=== PATIENT | female | born 1960 | race Caucasian/White ===

== ENCOUNTER 2016-06-03 06:29 | Day surgery (SDC) | payer OTHER ==
[~2016-06-03] VITALS: Ht 162.6 cm; Wt 95.5 kg
[~2016-06-03 06:29] MED LIST: ASCO250T5 PO; CHOL200041 PO; CITA20TA9 PO; LEVO50 PO; METF500T4 PO; OMEP20 PO; OXYB5 PO; PIOG30TA2 PO; QUET300XR PO; RANI150T7 PO; SIMV-261 PO
[2016-06-03] MEDS ORDERED: SODIUM CHLORIDE 0.9% 1,000 ML IV ONE ×2 (06:33→07:00)
[2016-06-03] MEDS ORDERED: XALA2.5OS OU (06:56)
[2016-06-03] MEDS ORDERED: NAPR-58 PO (06:56)
[2016-06-03] MEDS ORDERED: CORTSOL OT (06:56)
[2016-06-03] MEDS ORDERED: LORA0.5T2 PO (06:56)
[2016-06-03] MEDS ORDERED: FLUT16H NASAL (06:56)
[2016-06-03] MEDS ORDERED: MOME13HF IH (06:56)
[2016-06-03] MEDS ORDERED: AMIT25TA9 PO (06:56)
[2016-06-03] MEDS ORDERED: MONT10TA21 PO (06:56)
[2016-06-03] MEDS ORDERED: ALBU8.5H IH (06:56)
[2016-06-03] MEDS ORDERED: DAPA1TAB3 PO (06:56)
[2016-06-03 07:17] LABS: GLUCOSE,POINT OF CARE 143 MG/DL (70-110)
[2016-06-03] MEDS ORDERED: FentaNYL CITRATE-PF 100 MCG/2 ML VIAL ONE (07:45)
[2016-06-03] MEDS ORDERED: MIDAZOLAM HCL 2 MG/2 ML VIAL ONE (07:45)
[2016-06-03] MEDS ORDERED: MethylPREDNISolone SOD SUCC 125 MG/2 ML VIAL IVP ONE (08:45)
[2016-06-03] MEDS ORDERED: MethylPREDNISolone SOD SUCC 125 MG/2 ML VIAL ONE (09:03)
[2016-06-03] MEDS ORDERED: BENZOCAINE 20% 50 MCG/SPRAY 57 GM TP ONE (12:00)
[2016-06-03] MEDS ORDERED: LIDOCAINE HCL 2% 30 ML JELLY TP ONE (12:00)
[2016-06-03] MEDS ORDERED: LIDOCAINE HCL 4% 50 ML SOLUTION TP ONE (12:00)
[2016-06-03] MEDS ORDERED: ALBUTEROL SULFATE 2.5 MG/0.5 ML NEB SOLUTION NEB ONE (12:00)
[2016-06-03] MEDS ORDERED: OXYGEN THERAPY IH SCH (20:00)
== END 2016-06-03 10:10 | disposition home or self-care (01) ==
LOC: SURGERY 06:29
PROVIDERS: ATTEND Internal Medicine Critical Care Medicine
DX: J38.4 Edema of larynx (principal); B37.0 Candidal stomatitis; E11.39 Type 2 diabetes mellitus with other diabetic ophthalmic complication; H40.9 Unspecified glaucoma; D64.9 Anemia, unspecified; E78.00 Pure hypercholesterolemia, unspecified; Z87.891 Personal history of nicotine dependence; Z88.8 Allergy status to other drugs, medicaments and biological substances; Z98.890 Other specified postprocedural states
CPT/HCPCS: 31623; 31624; 71010; 82962; 87015 ×2; 87070; 87077; 87101; 87205; 87220; 88108; 88312; J2250; J2930; J3010; J7030

== ENCOUNTER 2016-08-11 20:28 | Emergency (ER) | payer OTHER ==
[~2016-08-11] VITALS: Ht 162.6 cm; Wt 90.5 kg
[~2016-08-11 20:28] MED LIST changes: +ALBU8.5H IH; +AMIT25TA9 PO; +CORTSOL OT; +DAPA1TAB3 PO; +FLUT16H NASAL; +LORA0.5T2 PO; +MOME13HF IH; +MONT10TA21 PO; +NAPR-58 PO; +XALA2.5OS OU
[2016-08-11 21:02] LABS: GLUCOSE COMMENT 1 Repeated; GLUCOSE,POINT OF CARE 138 MG/DL (70-110)
[2016-08-11 21:06] LABS: APPEARANCE,URINE CLOUDY (CLEAR); GLUCOSE, URINE (UA) >=1000 mg/dL (NEGATIVE); KETONES,URINE NEGATIVE (NEGATIVE); LEUKOCYTE ESTERASE ,URINE SMALL (NEGATIVE); OCCULT BLOOD,URINE MODERATE (NEGATIVE); PROTEIN,URINE NEGATIVE (NEGATIVE)
[2016-08-11 21:08] LABS: SQUAMOUS EPITHELIAL CELL,UR Many /LPF (None Seen)
[2016-08-11 22:22] VITALS: BP 125/71
== END 2016-08-11 23:01 | disposition home or self-care (01) ==
LOC: EMS 20:30
DX: L29.2 Pruritus vulvae (principal); E11.9 Type 2 diabetes mellitus without complications; E03.9 Hypothyroidism, unspecified; K21.9 Gastro-esophageal reflux disease without esophagitis; Z91.041 Radiographic dye allergy status
CPT/HCPCS: 82962; 87086; 99284

== ENCOUNTER 2017-04-19 06:40 | Day surgery (SDC) | payer OTHER ==
[~2017-04-19] VITALS: Ht 165.1 cm; Wt 99.5 kg
[~2017-04-19 06:40] MED LIST changes: -ALBU8.5H IH; +ALBU8.5H8 IH; +PIOG30TA10 PO; -PIOG30TA2 PO; +SODIUM CHLORIDE 0.9% 1,000 ML IV ONE
[2017-04-19] MEDS ORDERED: LIDOCAINE HCL 2% 5 ML JELLY TP ONE (06:41)
[2017-04-19] MEDS ORDERED: LIDOCAINE HCL 4% 50 ML SOLUTION TP ONE (06:41)
[2017-04-19] MEDS ORDERED: ALBUTEROL SULFATE 2.5 MG/0.5 ML NEB SOLUTION NEB ONE (06:41)
[2017-04-19] MEDS ORDERED: BENZOCAINE 20% 50 MCG/SPRAY 57 GM TP ONE (06:41)
[2017-04-19] MEDS ORDERED: SODIUM CHLORIDE 0.9% 1,000 ML IV ONE (07:02)
[2017-04-19] MEDS ORDERED: FentaNYL CITRATE-PF 100 MCG/2 ML VIAL ONE (07:33)
[2017-04-19] MEDS ORDERED: MIDAZOLAM HCL 2 MG/2 ML VIAL ONE (07:33)
[2017-04-19] MEDS ORDERED: MethylPREDNISolone SOD SUCC 125 MG/2 ML VIAL ONE (08:54)
[2017-04-19] MEDS ORDERED: MethylPREDNISolone SOD SUCC 125 MG/2 ML VIAL IVP ONE (09:00)
[2017-04-19] MEDS ORDERED: OXYGEN THERAPY IH SCH (20:00)
== END 2017-04-19 10:00 | disposition home or self-care (01) ==
LOC: SURGERY 06:40
PROVIDERS: ATTEND Internal Medicine Critical Care Medicine
DX: J38.4 Edema of larynx (principal); B37.0 Candidal stomatitis; J44.9 Chronic obstructive pulmonary disease, unspecified; E78.00 Pure hypercholesterolemia, unspecified; K21.9 Gastro-esophageal reflux disease without esophagitis; Z90.710 Acquired absence of both cervix and uterus; Z98.890 Other specified postprocedural states; Z79.84 Long term (current) use of oral hypoglycemic drugs; Z79.899 Other long term (current) drug therapy; Z91.041 Radiographic dye allergy status
CPT/HCPCS: 31623; 31624; 71045; 87015; 87070; 87205; 87220; 88108; 88312; J2250; J2930; J3010; J7030

== ENCOUNTER 2017-09-16 18:49 | Emergency (ER) | payer OTHER ==
[~2017-09-16] VITALS: Ht 160 cm; Wt 107.7 kg
[~2017-09-16 18:49] MED LIST changes: +CITA-106 PO; -CITA20TA9 PO; -METF500T4 PO; +METF500T6 PO; -SODIUM CHLORIDE 0.9% 1,000 ML IV ONE
[2017-09-16 19:14] LABS: GLUCOSE,POINT OF CARE 116 MG/DL (70-110)
[2017-09-16] MEDS ORDERED: IBUPROFEN 600 MG TABLET PO ONE (21:00)
[2017-09-16 22:18] VITALS: BP 143/88
== END 2017-09-16 22:31 | disposition home or self-care (01) ==
LOC: EMS 18:52
DX: S83.91XA Sprain of unspecified site of right knee, initial encounter (principal); E11.9 Type 2 diabetes mellitus without complications; E03.9 Hypothyroidism, unspecified; K21.9 Gastro-esophageal reflux disease without esophagitis; Z91.041 Radiographic dye allergy status; V49.60XA Unspecified car occupant injured in collision with unspecified motor vehicles in traffic accident, initial encounter; Y93.89 Activity, other specified; Y92.89 Other specified places as the place of occurrence of the external cause; Y99.8 Other external cause status
CPT/HCPCS: 29530; 99284

== ENCOUNTER 2017-12-14 17:54 | Emergency (ER) | payer OTHER ==
[~2017-12-14] VITALS: Ht 152.4 cm; Wt 59.1 kg
[~2017-12-14 17:54] MED LIST changes: +METF-960 PO; -METF500T6 PO
[2017-12-14 18:29] LABS: GLUCOSE,POINT OF CARE 98 MG/DL (70-110)
[2017-12-14 20:11] LABS: GLUCOSE,POINT OF CARE 137 MG/DL (70-110)
[2017-12-14] MEDS ORDERED: LIDOCAINE 5% TRANSDERMAL PATCH TD ONE (20:30)
[2017-12-14] MEDS ORDERED: KETOROLAC TROMETHAMINE 30 MG/ML VIAL IM ONE (20:30)
[2017-12-14] MEDS ORDERED: METHOCARBAMOL 500 MG TABLET PO ONE (20:30)
[2017-12-14 21:45] VITALS: BP 134/83
== END 2017-12-14 21:57 | disposition home or self-care (01) ==
LOC: EMS 17:58
DX: M54.6 Pain in thoracic spine (principal); R03.0 Elevated blood-pressure reading, without diagnosis of hypertension; E11.9 Type 2 diabetes mellitus without complications; E03.9 Hypothyroidism, unspecified; K21.9 Gastro-esophageal reflux disease without esophagitis; F32.9 Major depressive disorder, single episode, unspecified; F41.9 Anxiety disorder, unspecified; Z91.041 Radiographic dye allergy status; Z79.84 Long term (current) use of oral hypoglycemic drugs; Z79.899 Other long term (current) drug therapy
CPT/HCPCS: 71046; 82962; 96372; 99284; J1885

== ENCOUNTER 2021-04-11 18:36 | Emergency (ER) | payer OTHER ==
[~2021-04-11] VITALS: Ht 157.5 cm; Wt 84.1 kg
[~2021-04-11 18:36] MED LIST changes: +AMIT25TA10 PO; -AMIT25TA9 PO; +ASCO-363 PO; -ASCO250T5 PO; -CITA-106 PO; +CITA-144 PO; +LORA-999 PO; -LORA0.5T2 PO; +METF-1211 PO; -METF-960 PO; +MONT-35 PO; -MONT10TA21 PO; +NAPR-1025 PO; -NAPR-58 PO; -OXYB5 PO; +OXYB5TAB20 PO; +QUET300T5 PO; -QUET300XR PO
[2021-04-11 19:30] VITALS: BP 143/69
[2021-04-11 20:49] LABS: APPEARANCE,URINE CLEAR (CLEAR); BILIRUBIN,URINE NEGATIVE (NEGATIVE); GLUCOSE, URINE (UA) >=1000 mg/dL (NEGATIVE); KETONES,URINE NEGATIVE (NEGATIVE); LEUKOCYTE ESTERASE ,URINE SMALL (NEGATIVE); NITRATE,URINE NEGATIVE (NEGATIVE); OCCULT BLOOD,URINE MODERATE (NEGATIVE); PROTEIN,URINE TRACE (NEGATIVE); UROBILINOGEN,URINE 0.2 mg/dL (<=1.0)
[2021-04-11 21:29] LABS: SQUAMOUS EPITHELIAL CELL,UR Few /LPF (None Seen)
[2021-04-11 21:30] LABS: BACTERIA,URINE Few /HPF (None Seen)
[2021-04-12] MEDS ORDERED: CEPH500C3 PO (01:06)
== END 2021-04-12 01:45 | disposition home or self-care (01) ==
LOC: EMS 18:38
DX: N39.0 Urinary tract infection, site not specified (principal); R30.0 Dysuria; E11.9 Type 2 diabetes mellitus without complications; E03.9 Hypothyroidism, unspecified; K21.9 Gastro-esophageal reflux disease without esophagitis; F41.9 Anxiety disorder, unspecified; Z88.8 Allergy status to other drugs, medicaments and biological substances; Z91.041 Radiographic dye allergy status; Z79.84 Long term (current) use of oral hypoglycemic drugs; Z79.899 Other long term (current) drug therapy
CPT/HCPCS: 81001; 87086; 99283